=== PATIENT | male | born 1975 | race Caucasian/White ===

== ENCOUNTER → 2018-01-14 | Outpatient (CLI) | payer BC ==
[~2018-01-14] MED LIST: OXYC7.5T65 PO; SULF800T23 PO
--- NOTE | 2018-01-14 17:31 | DIAGNOSTIC IMAGING REPORT ---
CHEST 2 VIEWS ROUTINE CLINICAL HISTORY: Scrotal abscess. Preoperative evaluation. COMPARISON STUDY: No previous studies for comparison. FINDINGS: The lung volumes are normal. Lungs are clear. No pneumothorax or pleural effusion is noted. Slight prominence of the interstitium is likely within normal limits. Cardiac size is normal. Mediastinal contours are normal. There is no evidence for pulmonary edema. IMPRESSION: No acute cardiopulmonary findings. Electronically signed by: Gonsalo Katz M.D. 01/14/2018 5:29 PM Dictated Date/Time: 01/14/2018 5:18 PM
== END | disposition home or self-care (01) ==
LOC: C.RAD 17:00
PROVIDERS: ATTEND Urology
DX: N49.2 Inflammatory disorders of scrotum (principal)

== ENCOUNTER → 2018-01-17 | Day surgery (SDC) | payer BC ==
[2018-01-16 11:25] VITALS: Ht 175.3 cm; Wt 81.8 kg
[~2018-01-17] VITALS: Ht 175.3 cm; Wt 81.8 kg
[~2018-01-17] MED LIST changes: +ATROPINE SULFATE 0.1 MG/ML 5ML SYR IV PRN; +BUPIVACAINE 0.5 % 5 MG/1 ML PF 10ML VIAL ONE; +CEFAZOLIN 2000MG IV PUSH 15 ML IV SCH; +CEFAZOLIN SOD 2000MG/15 ML IV PUSH ONE; +EpHEDrine SULFATE INJ 50 MG/ML AMP IV PRN; +FENTANYL CITRATE INJ 50 MCG/1 ML 2 ML VIAL IV PRN; +FENTANYL CITRATE INJ 50 MCG/1 ML 2 ML VIAL ONE; +HydrALAZINE HCL 20 MG/ML VIAL IV. ONE; +HydrALAZINE HCL 20 MG/ML VIAL ONE; +LACTATED RINGER'S 1000ML 1,000 ML IV SCH; +LIDOCAINE HCL 2% 2 ML VIAL (20MG/ML) ONE; +LIDOCAINE/EPINEPHRINE 1% 20 ML VIAL ONE; +MIDAZOLAM HCL 1 MG/ML 2ML VIAL ONE; +NEOMYCIN/POLYMYX/BACITR OINT 15 GM TUBE ONE; +NURSING VERBAL MED ORDER ONE; +ONDANSETRON INJ 2 MG/ML 2 ML VIAL ONE; +OXYCODONE/ACETAMINOPHEN 5-325 TAB PO PRN; +PROPOFOL IV EMULSION 10 MG/ML 20 ML VIAL ONE; +SUCCINYLCHOLINE CHLORIDE 20 MG/ML 10 ML VIAL IV ONE
--- NOTE | 2018-01-17 07:05 | History & Physical Bridge Note ---
H&P Re-Evaluation Bridge Note: I have examined the patient, reviewed the History & Physical and in the interval since the performance of the History & Physical I have noted the following changes of clinical significance: No changes noted
--- NOTE | 2018-01-17 09:29 | Discharge Instructions ---
Discharge Instructions Date of Service Jan 17, 2018. Admission Reason for Admission: Scrotal Cyst/Abscess Discharge Discharge Diagnosis / Problem: Perineal Cyst Discharge Goals Goal(s): Decrease discomfort, Improve function Activity Recommendations Activity Limitations: resume your previous activity Lifting Limitations: gradually increase as tolerated, until after follow-up appointment Exercise/Sports Limitations: gradually increase as tolerated . Instructions / Follow-Up Instructions / Follow-Up Okay to shower in 24 hours. Okay to wash 2-3 x daily after that. Call if any swelling, fevers, chills, or other issues. Okay to use ice 20 mins on and 20 mins off. Cover as needed. Current Hospital Diet Patient's current hospital diet: Discharge Diet Recommended Diet: Regular Diet Procedures Procedures Performed: Scrotal Cyst/Abscess Excision/Drainage Pending Studies Studies pending at discharge: no Medical Emergencies . Who to Call and When: Medical Emergencies: If at any time you feel your situation is an emergency, please call 911 immediately. . Non-Emergent Contact Non-Emergency issues call your: Primary Care Provider, Urologist Call Non-Emergent contact if: you have a fever, temperature is above 101, temperature is above 101.5, your pain is not controlled, your pain is worsening , your pain is unusual for you, wound has increased drainage, wound has increased redness, wound has increased pain . . "Provider Documentation" section prepared by Iglesia Jimenez. .
--- NOTE | 2018-01-17 09:31 | [facility] Operative Report ---
Operative Report Operative Date Jan 17, 2018. Pre-Operative Diagnosis Scrotal/Perineal Cyst vs Abscess Post-Operative Diagnosis Same Procedure(s) Performed Excision of scrotal/perineal cyst 1.5cm Surgeon Tony Estimated Blood Loss Minimal Findings Approx 1.6cm cyst of perineum Specimens Cyst, perineum Drains None Anesthesia Type General Complication(s) none Disposition Recovery Room / PACU Indications Infected likely sebaceous cyst of the perineum and scrotum. Risks and benefits discussed. Description of Procedure Patient was consented and brought back to the operating room. Patient was placed under anesthesia in the dorsal lithotomy position. Patient was prepped and draped in the regular sterile fashion. A time out was completed. With the time out completed and the patient prepped, the median raphe was marked from the scrotum into the perineum. An 1.5 cm elliptical incision was planned. The cyst was assessed and isolated. The skin was anesthetized with local injected into the subcutaneous tissues. An incision was made with a scalpel and the deep tissues were dissected with bovie electrocautery. The cyst was slowly dissected en bloc. This was removed and sent for analysis. All bleeding was controlled. The wound was irrigated and all bleeding controlled. The entire area was examined. The deep and subcutaneous tissues were closed with a running 3-0 vicryl suture. A 4-0 monocryl suture was then used to close the skin in a horizontal mattress interrupted fashion. The area was cleaned. Adhesive placed. A scrotal support was placed with dressings. The patient was cleaned, aroused from anesthesia, and transferred to the pacu in stable condition having tolerated the procedure well with no complications. I was present and participated in all aspects of the procedure. I attest to the content of the Intraoperative Record and any orders documented therein. Any exceptions are noted below.
--- NOTE | 2018-01-17 10:34 | Anesthesia Progress Nt - [facility] ---
Anesthesia Post Op Note Date & Time Jan 17, 2018 at 10:34 Vital Signs Pain Intensity: 0 Vital Signs Past 12 Hours Date Time Temp Pulse Resp B/P (MAP) Pulse Ox O2 Delivery O2 Flow Rate FiO2 01/17/18 10:20 140/93 01/17/18 10:16 76 19 01/17/18 10:16 75 19 99 01/17/18 10:15 152/89 01/17/18 10:11 70 14 99 01/17/18 10:11 71 14 01/17/18 10:10 154/101 01/17/18 10:08 62 13 01/17/18 10:08 62 13 98 01/17/18 10:07 62 15 169/104 98 01/17/18 10:06 63 19 01/17/18 10:06 64 19 99 01/17/18 10:05 65 20 171/101 98 01/17/18 09:41 37.5 76 29 159/68 97 Mask 15 01/17/18 06:45 36.8 51 20 152/76 (101) 99 Room Air Notes Mental Status: alert / awake / arousable, participated in evaluation Pt Amnestic to Procedure: Yes Nausea / Vomiting: adequately controlled Pain: adequately controlled Airway Patency, RR, SpO2: stable & adequate BP & HR: stable & adequate Hydration State: stable & adequate Anesthetic Complications: no major complications apparent
[2018-01-17 10:47] VITALS: TEMP 37.7
[2018-01-17 11:20] VITALS: BP 135/85; PULSE 59; O2SAT 97
== END | disposition home or self-care (01) ==
LOC: X.SURG 06:32
PROVIDERS: ATTEND Urology
DX: N49.2 Inflammatory disorders of scrotum (principal); F17.200 Nicotine dependence, unspecified, uncomplicated